=== PATIENT | female | born 1940 | race Caucasian/White ===

== ENCOUNTER 2017-05-21 18:43 | Emergency (ER) | payer MEDICARE, BC ==
[2017-05-21 18:50] VITALS: RESP 20
[2017-05-21 19:43] LABS: BASOPHILS % (AUTO) 1 % (0-3); EOSINOPHILS % (AUTO) 0 % (0-9); HEMATOCRIT 38 % (35-47); MEAN CORPUSCULAR HGB CONC 34.2 gm/dl (32.0-36.0); MEAN CORPUSCULAR VOLUME 86 fL (81-99); MONOCYTES % (AUTO) 5.3 % (0-12); NEUTROPHILS % (AUTO) 86.3 % (37-80)
[2017-05-21 19:44] VITALS: BP 133/44; PULSE 61; TEMP 97.1; O2SAT 99
[2017-05-21 19:55] LABS: CALCIUM 8.6 mg/dl (8.5-10.1); POTASSIUM 4.2 mMol/L (3.5-5.1)
== END 2017-05-21 20:27 | disposition home or self-care (01) | DRG 639 ==
LOC: ED 18:43
DX: E11.649 Type 2 diabetes mellitus with hypoglycemia without coma (principal); E78.5 Hyperlipidemia, unspecified; I10 Essential (primary) hypertension; Z79.4 Long term (current) use of insulin
CPT/HCPCS: 36415; 80048; 82962; 85025; 99283

== ENCOUNTER 2018-02-14 13:15 | Day surgery (SDC) | payer MEDICARE, BC ==
[2018-02-14] MEDS ORDERED: DIAZEPAM 5 MG TAB ONE (13:29)
[2018-02-14] MEDS ORDERED: BUPIVACAINE HCL 0.25% MPF 30 ML SOL INFIL ONE (13:36)
[2018-02-14] MEDS: DEXAMETHASONE SOD PHOS PF 10 MG/ML SOL IJ ONE ×2 (14:06→14:11)
[2018-02-14 14:35] VITALS: BP 118/53; PULSE 76; RESP 20; TEMP 99.7; O2SAT 95
== END 2018-02-14 17:10 | disposition home or self-care (01) | DRG 552 ==
LOC: SURG 13:15
PROVIDERS: ATTEND Nurse Anesthetist, Certified Registered
DX: M99.53 Intervertebral disc stenosis of neural canal of lumbar region (principal); E11.9 Type 2 diabetes mellitus without complications
CPT/HCPCS: 82962; A9270-GY; J1100

== ENCOUNTER 2018-12-23 06:03 | Emergency (ER) | payer MEDICARE, BC ==
[2018-12-23 06:14] VITALS: BP 150/73; PULSE 70; RESP 18; TEMP 98.9; O2SAT 91
== END 2018-12-23 07:31 | disposition home or self-care (01) | DRG 156 ==
LOC: ED 06:03
DX: H60.91 Unspecified otitis externa, right ear (principal); E11.9 Type 2 diabetes mellitus without complications; Z79.4 Long term (current) use of insulin
CPT/HCPCS: 99282